=== PATIENT | female | born 1995 | race Two or more races ===

== ENCOUNTER → 2024-09-04 | Outpatient (CLI) | payer MEDICAID, SELFPAY ==
--- NOTE | 2024-09-04 14:43 | XR_ITS ---
Examination: Complete OB ultrasound greater than 14 weeks Date and time of exam: September 04, 2024 1456 hours INDICATIONS: Pelvic pain one month, clinical diagnosis threatened Findings: Viable intrauterine single fetus with single amniotic sac presentation cephalic Cardiac motion 147 BPM Placenta posterior. One Umbilical cord insertion 3 vessel seen Amniotic fluid adequate Cervix 4.6 cm closed Right ovary 3.6 cm arterial flow Left ovary 2.7 cm arterial flow. Composite estimated gestational age based on BPD, head circumference, abdominal circumference, femur length is 15 weeks 6 days Estimated weight 135 g. Survey of intracranial anatomy, spinal anatomy, abdominal anatomy, four-chamber heart performed with no abnormalities identified. Impression: Viable intrauterine gestation cephalic presentation.
== END | disposition home or self-care (01) ==
PROVIDERS: PCP Family Medicine; Referring Provider Obstetrics & Gynecology; Visit Provider Obstetrics & Gynecology
DX: O20.0 Threatened abortion (principal); Z3A.15 15 weeks gestation of pregnancy
CPT/HCPCS: 76805

== ENCOUNTER 2025-02-13 11:54 | Inpatient (IN) | payer MEDICAID, SELFPAY ==
[2025-02-13] VITALS (68 sets, daily range): BP systolic 86–143; BP diastolic 50–85; PULSE 61–108; RESP 14–99; TEMP 36.3–36.8; O2SAT 81–100; BMI 30.7
--- NOTE | 2025-02-13 12:25 | XR_ITS ---
Examination: Complete OB ultrasound greater than 14 weeks Date and time of exam: February 13, 2025 1426 hours INDICATIONS: Labor evaluation unknown weight Findings: Viable intrauterine single fetus with single amniotic sac presentation cephalic Cardiac motion 121 BPM Placenta posterior grade 3 Clinical: Insertion 3 vessel seen. Amniotic fluid index 8.3 cm spine posterior Cervix 3.2 cm Ovaries obscured by bowel gas.. Composite estimated gestational age based on BPD, head circumference, abdominal circumference, femur length is 37 weeks 3 days Estimated weight 3192 g. Survey of intracranial anatomy, spinal anatomy, abdominal anatomy, four-chamber heart performed with no abnormalities identified. Impression: Viable intrauterine gestation cephalic presentation.
[2025-02-13] MEDS: RINGERS LACTATED 500 ML 500 ML 999 ML IV ×2 (12:50→15:33)
[2025-02-13 13:53] LABS: Basophils # (Auto) 0.0 Thou/mm3 (0.0-0.2); Basophils % (Auto) 0 % (0-2.5); Eosinophils # (Auto) 0.0 Thou/mm3 (0.0-0.5); Eosinophils % (Auto) 1 % (0-10); Hematocrit 32.5 % (36.0-46.0); Hemoglobin 10.9 g/dL (12.0-16.0); Immature Granulocytes Auto 0.03 Thou/mm3 (0.00-0.00); Lymphocytes # (Auto) 1.3 Thou/mm3 (1.0-4.8); Lymphocytes % (Auto) 21 % (10-50); Mean Corpuscular HGB Conc 33.5 g/dl (31.0-37.0); Mean Corpuscular Hemoglobin 25.5 pg (25.0-35.0); Mean Corpuscular Volume 76 fL (80-100); Monocytes # (Auto) 0.5 Thou/mm3 (0.0-0.8); Monocytes % (Auto) 7 % (0-12); Neutrophils # (Auto) 4.6 Thou/mm3 (1.8-7.7); Neutrophils % (Auto) 71 % (37-80); Nucleated Red Blood Cell # 0.00 Thou/mm3 (0.00-0.00); Nucleated Red Blood Cell % 0 /100 WBC (0); Platelet Count 231 Thou/mm3 (140-440); RDW Standard Deviation 38.0 fL (36.4-46.3); Red Blood Count 4.27 Miln/mm3 (4.00-5.20); White Blood Count 6.4 Thou/mm3 (3.6-11.0)
[2025-02-13 14:31] LABS: Syphilis Nonreactive (Nonreactive)
[2025-02-13] MEDS: CITRIC ACID/SODIUM CITR 15 ML UDC (BICITRA) 30 ML PO (16:04)
[2025-02-13] MEDS: FAMOTIDINE INJ 10 MG/ML VIAL 2 ML 20 MG IV (16:04)
[2025-02-13] MEDS: ceFAZolin/D5W 2 GM IV 2 GM/100 ML BAG IV (16:04)
--- NOTE | 2025-02-13 16:39 | PD.GYNPROC ---
Operative Note - [facility]PER[facility]OR PARTIAL DENTURE DEPARTMENT Procedure Date of procedure: 02/13/25 Procedure Performed: Stat primary low-transverse Indication: 29-year-old G2, P1 in labor with category 2 tracing and acute bradycardia Anesthesia type: Epidural Procedure description: Informed consent was obtained, and the patient was taken emergently to the operating room. Identity was confirmed using two patient identifiers. Spinal [or general] anesthesia was administered, and the patient was positioned in supine position. The abdomen and perineum were prepped and draped in sterile fashion. A Moreno catheter was inserted for continuous drainage. A surgical timeout was performed. A Pfannenstiel skin incision was made using a scalpel and carried sharply through all layers down to the rectus fascia, which was identified and incised on either side of the midline. The fascial incisions were extended bilaterally using blunt dissection. The rectus muscles were , and the peritoneum was entered bluntly and stretched to expose the lower uterine segment. A low transverse uterine incision was made using a scalpel. The amniotic membranes were ruptured, and the fetus was found in occiput posterior (OP) position. The nuchal cord was reduced during delivery. The was delivered and the umbilical cord was clamped, divided, and the was handed to the awaiting team. Cord gases were obtained. The placenta was delivered manually, and the uterine cavity was cleared of clots and membranes. The uterine incision was closed in two layers using 1-0 Monocryl. An area of thinning/defect was noted in the uterine fundus and was repaired using 0 Vicryl [id number] sutures. Surgicel was applied to the repaired area and was noted to be hemostatic. The uterus was returned to the peritoneal cavity. The rectus fascia was closed in a running fashion using 0 Vicryl. The subcutaneous fat was re-approximated using 2-0 Vicryl, and the skin was closed using 4-0 Monocryl in a subcuticular fashion. A Dermabond Prineo dressing was applied.The entire procedure was technically challenging due to the patient?s history of abdominoplasty, which complicated both the delivery and abdominal wall closure. The patient was transferred to recovery in stable and awake condition. She tolerated the procedure well. All instrument, sponge, and lap counts were correct ?2. Estimated blood loss (ml): 600 Complications: none Surgical staff Operation Date: 02/13/25 16:15 <No data on this case meets the specified criteria> Diagnosis Discharge Diagnosis (1) delivery delivered: Status: Acute (2) bradycardia affecting management of mother, delivered: Status: Acute Problem List Completed Was Problem List Reviewed/Reconciled?: Yes
--- NOTE | 2025-02-13 16:43 | PD.LDDELS ---
Data (Brannon) Data Hx Section: No : 2 Term: 1 : 0 Livin Abortions: Spontaneous & Theraputic: 0 Delivery Data (Brannon) Labor Data Initiation of labor: Spontaneous Induction/Augmentation Agent: None ROM date: 02/13/25 ROM time: 16:20 Amniotic membrane rupture type: Artificial Amniotic fluid description: Clear Delivery Data Onset of labor date: 02/13/25 Onset of labor time: 13:25 delivery date: 02/13/25 [place] delivery time: 16:19 Placenta delivery date: 02/13/25 Placenta delivery time: 16:20 Delivered by: Mitul Dana Delivery nurse: hCelita Guerra RN [place] nurse: Sheri Abarca RN Director Of Special Education at delivery: No Support person(s) at delivery: FOB Other staff at delivery: Compa An RN, Martina Palma Delivery Method Delivery method: Low Transverse Presentation: Vertex Anesthesia Type Anesthesia Type: Epidural Anesthesia type: Epidural Placenta Placenta delivery description: Spontaneous Cord blood sent to lab: Yes cord blood collection: Cord Blood Type, Arterial Cord Blood Gas and Venous Cord Blood Gas Episiotomy Episiotomy description: None Umbilical Cord cord description: 3 Vessels [place] Data (Brannon) [place] Data order: 1 's gender: Male Identification band number: [id number] weight (gms): 2860 g Weight (pounds): 6 lbs and 4.9 ozs length: 46.5 cm 1 minute: 8 5 minutes: 9
[2025-02-13] MEDS: OXYTOCIN in NS 20 units 20 UNIT/1,000 ML BAG 125 UNIT IV (19:29)
--- NOTE | 2025-02-13 22:02 | ESHP_ITS ---
Documentation for date of: 02/13/25 OB Labor/Induct. HPI History of Present Illness Chief complaint: Labor : 2 Para: 1 Term pregnancies: 1 pregnancies: 0 Living children: 1 History of Abortions: Spontaneous and Elective: 0 History of Vaginal deliveries: 1 History of sections: No History of : No CATRACHITA: 02/26/25 Gestational Age (weeks): 38 Gestational Age (days): 1 History of present illness: Early labor Patient is a 29-year-old who was sent from her obstetric office at [facility] in early labor. She was found to be 4 centimeters dilated with 50 percent effacement when checked in the office and was subsequently admitted. Initially, she labored spontaneously with contractions occurring every 2 to 4 minutes. At approximately 4 p.m., she experienced a run of recurrent variable decelerations followed by a prolonged late deceleration lasting about 6 minutes, which necessitated an emergent section. She is now status post section. Surgical History: - section performed during current admission for distress with recurrent variable decelerations and prolonged late deceleration History of Present Adequate Care: Yes Labs Labs: Negative: RPR, Hepatitis B, Rubella Titre, HIV, Chlamydia, Gonorrhea and Group Beta Strep and Unknown: Herpes Type 1, Herpes Type 2 and Covid-19 Past Medical History Surgical History SURGICAL: Negative Section Meds Home Medications and Allergies Allergies Allergy/AdvReac Type Severity Reaction Status Date / Time NKA* Allergy Uncoded 05/04/16 13:22 OB Exam Physical Exam Vital signs: Temp Pulse Resp BP Pulse Ox O2 Del Method 98.3 F 79 17 102/63 100 Room Air 02/13/25 20:00 02/13/25 20:00 02/13/25 20:00 02/13/25 20:00 02/13/25 20:00 02/13/25 20:00 Constitutional Constitutional: no acute distress Routine HEENT Exam Head: Present normocephalic and atraumatic Eye: Present EOMI and PERRL ENT: Present mucous membranes moist Routine Neck Exam Neck: Present supple and trachea midline Routine Cardiovascular Exam Cardiovascular: Present RRR Routine Abdominal Exam Abdominal: Present soft and normoactive bowel sounds Detailed Labor and Delivery Exam Dilation (cm): 4 Effacement (%): 50 Cervix position: posterior station: -3 Consistency: firm Presentation: Vertex Membranes: intact Baseline heart rate: 140 monitor accelerations: 15x15 monitor decelerations: Variable vermin exterminator variability: Average (6-10) Contraction frequency (min): 4 Routine Extremities Exam Extremities: Present full ROM Routine Skin Exam Skin: Present intact, dry and warm Routine Neurological Exam Neurological: Present alert, oriented X3 and CN II-XII intact Routine Psychiatric Exam Psychiatric: Present normal affect and normal thought process OB Results Labs 02/14/25 05:30 Labs: Short CBC 02/13/25 Range/Units 13:20 WBC 6.4 (3.6-11.0) Thou/mm3 Hgb 10.9 L (12.0-16.0) g/dL Hct 32.5 L (36.0-46.0) % Plt Count 231 (140-440) Thou/mm3 OB Assessment & Plan Assessment and Plan (1) delivery delivered: Status: Acute (2) bradycardia affecting management of mother, delivered: Status: Acute Assessment and plan: Intrapartum management and delivery Assessment: Patient was admitted in early labor at 4 cm dilation and 50% effacement. She initially labored spontaneously with contractions every 2-4 minutes. At approximately 4 p.m., the patient experienced recurrent variable decelerations followed by a prolonged late deceleration lasting about 6 minutes, indicating distress. Due to these concerning heart rate patterns, an emergent section was performed. Plan: - Admit to inpatient status - Establish IV access - Administer Lactated Ringer's solution at 125 mL/hour - Obtain labs: CBC, type and screen, RPR - Note: Group B Strep status is negative - Continue management
[2025-02-13] MEDS: HYDROcodone/APAP 5/325 TABLET 2 TAB PO (23:18)
[2025-02-14] MEDS: KETOROLAC INJ 30 MG/ML VIAL IVP ×2 (01:27→08:09)
[2025-02-14] MEDS: RINGERS LACTATED 1000 ML 1,000 ML 125 ML IV (03:30)
[2025-02-14 06:00] VITALS: BP 116/76; PULSE 97; RESP 16; TEMP 37.2; O2SAT 99
[2025-02-14 06:12] LABS: Basophils # (Auto) 0.0 Thou/mm3 (0.0-0.2); Basophils % (Auto) 0 % (0-2.5); Eosinophils # (Auto) 0.0 Thou/mm3 (0.0-0.5); Eosinophils % (Auto) 0 % (0-10); Hematocrit 30.1 % (36.0-46.0); Hemoglobin 10.1 g/dL (12.0-16.0); Immature Granulocytes Auto 0.03 Thou/mm3 (0.00-0.00); Lymphocytes # (Auto) 1.6 Thou/mm3 (1.0-4.8); Lymphocytes % (Auto) 17 % (10-50); Mean Corpuscular HGB Conc 33.6 g/dl (31.0-37.0); Mean Corpuscular Hemoglobin 26.1 pg (25.0-35.0); Mean Corpuscular Volume 78 fL (80-100); Monocytes # (Auto) 0.5 Thou/mm3 (0.0-0.8); Monocytes % (Auto) 6 % (0-12); Neutrophils # (Auto) 7.2 Thou/mm3 (1.8-7.7); Neutrophils % (Auto) 77 % (37-80); Nucleated Red Blood Cell # 0.00 Thou/mm3 (0.00-0.00); Nucleated Red Blood Cell % 0 /100 WBC (0); Platelet Count 189 Thou/mm3 (140-440); RDW Standard Deviation 39.5 fL (36.4-46.3); Red Blood Count 3.87 Miln/mm3 (4.00-5.20); White Blood Count 9.4 Thou/mm3 (3.6-11.0)
[2025-02-14] MEDS: DOCUSATE SOD 100 MG CAPSULE PO (08:09)
[2025-02-14 08:50] VITALS: BP 123/75; PULSE 88; RESP 16; TEMP 36.8; O2SAT 100
[2025-02-14] MEDS: HYDROcodone/APAP 5/325 TABLET 2 TAB PO (08:56)
[2025-02-14 12:00] VITALS: BP 124/80; PULSE 95; RESP 15; TEMP 36.6
[2025-02-14 16:15] VITALS: BP 124/74; PULSE 96; RESP 16; TEMP 36.9
[2025-02-14] MEDS: HYDROcodone/APAP 5/325 TABLET 1 TAB PO ×2 (16:28→20:24)
--- NOTE | 2025-02-14 17:58 | PD.LDPPPRG ---
Subjective Subjective Interval history: The patient is a 29-year-old -0-0-1 at 38 1/7 weeks who underwent an emergent [address] Cortez yesterday around 1600. I rounded on this morning. She was resting comfortably. Her mother was at bedside. Her Moreno catheter had to be replaced after the patient tried to void for about 40 minutes on the toilet and then the patient had a near syncopal episode. Her mother was quite concerned. The plan will be to have the patient sit at the bedside and ambulate to a chair and if she is tolerating that, then we will take the catheter out of her bladder. Her predelivery hemoglobin 10.9 her postdelivery hemoglobin was 10.1. Will repeat another hemoglobin tomorrow. The patient otherwise is tolerating a general diet. Exam Vital Signs Temp Pulse Resp BP Pulse Ox O2 Del Method 98.5 F 96 16 124/74 100 Room Air 02/14/25 16:15 02/14/25 16:15 02/14/25 16:15 02/14/25 16:15 02/14/25 08:50 02/14/25 16:15 Narrative Exam Patient's alert and oriented x 3. She is tired but otherwise in no apparent distress. Abdomen soft dressing in place fundus firm extremities show no significant edema or erythema Objective Labs 02/14/25 05:30 Labs: Laboratory Results - last 24 hr 02/14/25 05:30 WBC 9.4 D RBC 3.87 L Hgb 10.1 L Hct 30.1 L MCV 78 L MCH 26.1 MCHC 33.6 RDW Std Deviation 39.5 Plt Count 189 D Neut % (Auto) 77 Lymph % (Auto) 17 [place] % (Auto) 6 Eos % (Auto) 0 Baso % (Auto) 0 Neut # (Auto) 7.2 Lymph # (Auto) 1.6 [place] # (Auto) 0.5 Eos # (Auto) 0.0 Baso # (Auto) 0.0 Immature Gran # (Auto) 0.03 H Absolute Nucleated RBC 0.00 Immature Gran % 0 Nucleated RBC % 0 Assessment & Plan Problem List (1) delivery delivered: Problem details: Routine post op orders. Remove Moreno catheter. Ambulate. Recheck CBC in the morning. Status: Acute (2) bradycardia affecting management of mother, delivered: Status: Acute Time Spent With Patient Time: Total time spent is greater than 50% in coordination of care (as documented) at patient's floor/unit and/or counseling patient: Time with patient: less than 15 minutes
--- NOTE | 2025-02-14 18:02 | PD.LDPPPRG ---
Subjective Subjective Interval history: The patient is a 29-year-old -0-0-1 at 38 and 1 sevenths weeks who underwent an emergency primary at [address] Cortez for intolerance to labor. Patient's first baby was born vaginally. Her is at bedside. The patient is doing pretty well today. Her Moreno is out and she is voiding. She is tolerating a general diet. Her pain is controlled. The plan will be to repeat a CBC in the morning and encourage ambulation in the halls. Exam Vital Signs Temp Pulse Resp BP Pulse Ox O2 Del Method 98.5 F 96 16 124/74 100 Room Air 02/14/25 16:15 02/14/25 16:15 02/14/25 16:15 02/14/25 16:15 02/14/25 08:50 02/14/25 16:15 Narrative Exam Patient is alert and orient x 3 abdomen soft nontender, nondistended incision dressed and dry. Objective Labs 02/14/25 05:30 Labs: Laboratory Results - last 24 hr 02/14/25 05:30 WBC 9.4 D RBC 3.87 L Hgb 10.1 L Hct 30.1 L MCV 78 L MCH 26.1 MCHC 33.6 RDW Std Deviation 39.5 Plt Count 189 D Neut % (Auto) 77 Lymph % (Auto) 17 [place] % (Auto) 6 Eos % (Auto) 0 Baso % (Auto) 0 Neut # (Auto) 7.2 Lymph # (Auto) 1.6 [place] # (Auto) 0.5 Eos # (Auto) 0.0 Baso # (Auto) 0.0 Immature Gran # (Auto) 0.03 H Absolute Nucleated RBC 0.00 Immature Gran % 0 Nucleated RBC % 0 Assessment & Plan Problem List (1) delivery delivered: Problem details: Routine post op orders. Ambulate. Recheck CBC in the morning. Status: Acute (2) bradycardia affecting management of mother, delivered: Status: Acute Time Spent With Patient Time: Total time spent is greater than 50% in coordination of care (as documented) at patient's floor/unit and/or counseling patient: Time with patient: less than 15 minutes
[2025-02-14 20:00] VITALS: BP 123/76; PULSE 95; RESP 17; TEMP 37.1; O2SAT 98
[2025-02-15] MEDS: HYDROcodone/APAP 5/325 TABLET 2 TAB PO (02:46)
[2025-02-15 03:56] VITALS: BP 117/69; PULSE 98; RESP 16; TEMP 37.1; O2SAT 97
[2025-02-15 08:00] VITALS: BP 123/78; PULSE 86; RESP 16; TEMP 36.6; O2SAT 98
[2025-02-15] MEDS: IBUPROFEN TAB 400 MG TABLET 800 MG PO (08:37)
[2025-02-15] MEDS: DOCUSATE SOD 100 MG CAPSULE PO (08:37)
--- NOTE | 2025-02-15 09:47 | PD.LDDS ---
DS: Providers Provider Date of admission: 02/13/25 12:25 Primary care physician: Physician No Primary/Family Admitting Provider: Mitul Cortez MD Attending Provider on Admission: Toya Bernard MD Consults: 02/13/25 17:43 Referral Routine Comment: Attending Provider on DC: Toya Bernard MD Discharging Provider: Toya Bernard MD DS: Diagnosis Discharge Diagnosis (1) delivery delivered: Status: Acute (2) bradycardia affecting management of mother, delivered: Status: Acute Problem List Completed Was Problem List Reviewed/Reconciled?: Yes Summary/Hosp Course Brief History: Early labor Patient is a 29-year-old who was sent from her obstetric office at [facility] in early labor. She was found to be 4 centimeters dilated with 50 percent effacement when checked in the office and was subsequently admitted. Initially, she labored spontaneously with contractions occurring every 2 to 4 minutes. At approximately 4 p.m., she experienced a run of recurrent variable decelerations followed by a prolonged late deceleration lasting about 6 minutes, which necessitated an emergent section. She is now status post section. Surgical History: - section performed during current admission for distress with recurrent variable decelerations and prolonged late deceleration ---- Avelina is s/p uncomplicated section, doing well on POD 2. She has had an uncomplicated post-operative course, meeting all milestones and feels ready for discharge home. She is ambulating without lightheadedness, tolerating regular diet no n/v, spontaneously voiding without issue. She has no chest pain or shortness of breath. No fevers or chills. Pain well controlled. Vitals normal, benign exam. Hemodynamically stable with no evidence of infection. Post-op Hgb 10.1 from 10.9. Peripartum Data Delivery Method: Low Transverse Episiotomy Description: None Procedures: Procedures Operation Date: 02/13/25 16:15 Actual Procedure Side Surgeon p in OB Not Applicable Mitul Cortze MD Status at Discharge Functional status at discharge: independent ambulation Overall status at discharge: patient is back to baseline Time Spent with Patient Time attestation: Total time spent providing and/or coordinating discharge services: Exam Vital Signs Temp Pulse Resp BP Pulse Ox O2 Del Method 97.8 F 86 16 123/78 98 Room Air 02/15/25 08:00 02/15/25 08:00 02/15/25 08:00 02/15/25 08:00 02/15/25 08:00 02/15/25 08:00 Narrative Exam General: well developed, well nourished, no acute distress, conversant Cardiac: normal heart rate Lungs: breathing without distress Abdomen: soft, post-gravid, non-tender, no rebound or guarding, pfannenstiel incision covered by dry/clean/intact prineo bandage. Incision well reapproximated. No erythema, drainage or induration. Fundus firm at u-2cm. Extremities: no pain with palpation of calves, trace edema of BLE Discharge Plan Plan Patient Disposition: HOME (Self Care) Patient condition on transfer: Stable Prescriptions/Referrals Prescriptions/Med Rec: New hydrocodone-acetaminophen 5-325 mg Tablet 1 tab PO Q6H MDD 4 tablets PRN (Reason: Patient rated pain 7 to 8) 7 Days Qty: 10 0RF docusate sodium 100 mg Capsule 100 mg PO BID 10 Days Qty: 20 0RF ibuprofen 800 mg tablet 800 mg PO Q8HR PRN (Reason: Pain Scale 4-6 (Moderate) 10 Days Qty: 30 0RF Continued simethicone [Gas Relief (simethicone)] 125 MG tablet,chewable 125 mg PO Q4HR PRN (Reason: GAS) Qty: 30 0RF Referrals: No Primary/Family,Physician [Primary Care Provider] Patient/Caregiver Discharge Instructions Discharge Activity: activity as tolerated Other Discharge Activity Instructions:: vaginal rest and no heavy lifting more than 10 pounds, no driving while taking narcotic, keep incision clean and dry- do not submerge Other Discharge Diet Instructions: regular Education Materials: C Section Dc Print Language: Albanian Activity Restrictions/Additional Instructions: follow up with Dr. Mandel in 1 to 2 weeks for post-op visit, call clinic for appointment Stand Alone Forms: Varsha Award Info., Patient Portal Info Letter Discharge Order Discharge Orders: Discharge (Routine); Ordered 02/15/25 Ordered By: Toya Bernard Planned Discharge Date 02/15/25
== END 2025-02-15 11:45 | disposition home or self-care (01) | DRG 540 ==
LOC: S4SX 16:01 → S4NX 16:27
PROVIDERS: Admitting Provider Obstetrics & Gynecology; Visit Provider Obstetrics & Gynecology
PROC: 10D00Z1 Extraction of Products of Conception, Low, Open Approach (ICD-10-PCS; CPT 59514; principal; 2025-02-13 16:00)
DX: O69.81X0 Labor and delivery complicated by cord around neck, without compression, not applicable or unspecified (principal); Z37.0 Single live birth; O76 Abnormality in fetal heart rate and rhythm complicating labor and delivery; Z3A.38 38 weeks gestation of pregnancy
CPT/HCPCS: 36415; 59025; 59409; 76805; 85025; 86780; 86850; 86900; 86901; 94762; A4217; A4314; A4649; J0689; J1885; J2250; J2371; J2590; J2704; J2795; J3010; J3490; J7120; A9270